=== PATIENT | female | born 1970 | race African-American/Black ===

== ENCOUNTER → 2020-07-26 | Day surgery (SDC) | payer OTHER | END | disposition home or self-care (01) | LOC: FMAMMOTONE 09:25 | PROVIDERS: ATTEND Hospitalist | PROC: 0H9T3ZX Drainage of Right Breast, Percutaneous Approach, Diagnostic (ICD-10-PCS; principal; 2020-07-26) | DX: R92.0 Mammographic microcalcification found on diagnostic imaging of breast (principal); Z53.8 Procedure and treatment not carried out for other reasons | CPT/HCPCS: 19081 ==

== ENCOUNTER 2020-10-12 08:17 | Emergency (ER) | payer OTHER ==
[2020-10-12 08:26] VITALS: BMI 19.1
[2020-10-12] MEDS ORDERED: SODIUM CHLORIDE 0.9% 500 ML INFUS.BAG IV ONE (08:49)
[2020-10-12] MEDS ORDERED: PANTOPRAZOLE SODIUM 40 MG VIAL IVPUSH ONE (08:59)
[2020-10-12] MEDS ORDERED: ONDANSETRON 4 MG/2 ML VIAL IVPUSH ONE (08:59)
[2020-10-12] MEDS ORDERED: MAG HYDROX/AL HYDROX/SIMETH 30 ML UNIT-DOSE CUP PO ONE (08:59)
[2020-10-12] MEDS ORDERED: ACETAMINOPHEN 1000 MG/100 ML VIAL (NON FORMULARY) IVPB ONE (09:03)
[2020-10-12] MEDS ORDERED: ACETAMINOPHEN INJECTION 100 ML IVPB ONE (09:08)
[2020-10-12] MEDS ORDERED: MAG HYDROX/AL HYDROX/SIMETH 30 ML UNIT-DOSE CUP ONE (09:08)
[2020-10-12] MEDS ORDERED: PANTOPRAZOLE SODIUM 40 MG VIAL ONE (09:09)
[2020-10-12] MEDS ORDERED: ONDANSETRON 4 MG/2 ML VIAL ONE (09:09)
[2020-10-12 09:59] LABS: BASO % 0.1 % (0-2.0); EOS % 1.1 % (0-4.5); HEMATOCRIT 38.2 % (32.4-45.2); HEMOGLOBIN 12.6 GM/dL (10.7-15.3); LYMPH % 24.6 % (8-40); MCH 28.2 pg (25.7-33.7); MEAN CELL VOLUME 85.6 fl (80-96); MONO % 6.5 % (3.8-10.2); NEUT % 67.7 % (42.8-82.8); PLATELET COUNT 204 10^3/uL (134-434); RBC 4.46 M/mm3 (3.60-5.2); RDW 12.8 % (11.6-15.6)
[2020-10-12 10:19] LABS: CHLORIDE 102 mmol/L (98-107); SODIUM 135 mmol/L (136-145)
[2020-10-12 10:21] LABS: ALBUMIN 3.8 g/dl (3.4-5.0); CALCIUM 9.2 mg/dL (8.5-10.1)
[2020-10-12 10:22] LABS: BLOOD UREA NITROGEN 6.1 mg/dL (7-18); CO2 29 mmol/L (21-32); GLUCOSE,RANDOM 163 mg/dL (74-106); LIPASE 26 U/L (73-393)
[2020-10-12 10:25] LABS: CREATININE 1.2 mg/dL (0.55-1.3)
[2020-10-12 10:26] LABS: BILIRUBIN,TOTAL 0.8 mg/dL (0.2-1); TOT PROT 8.2 g/dl (6.4-8.2)
[2020-10-12 10:27] LABS: ALK PHOS 67 U/L (45-117)
[2020-10-12 10:29] LABS: ANION GAP 4 MMOL/L (8-16); SGOT/AST 80 U/L (15-37)
[2020-10-12 10:50] LABS: SGPT/ALT 20 U/L (13-61)
[2020-10-12] MEDS ORDERED: morphine CARPU-JECT 4 MG/1 ML DISP.SYRIN IVPUSH ONE (10:55)
[2020-10-12] MEDS ORDERED: LORazepam 2 MG/ML SDV VIAL IVPUSH ONE (11:00)
[2020-10-12 11:21] LABS: CALCIUM 8.1 mg/dL (8.5-10.1)
[2020-10-12 11:22] LABS: BLOOD UREA NITROGEN 5.7 mg/dL (7-18)
[2020-10-12] MEDS ORDERED: LORazepam 2 MG/ML SDV VIAL ONE (11:45)
[2020-10-12 15:55] VITALS: BP 136/77; PULSE 81; TEMP 98.8
== END 2020-10-12 15:55 | disposition home or self-care (01) ==
LOC: JER 08:17
PROC: 3E0333Z Introduction of Anti-inflammatory into Peripheral Vein, Percutaneous Approach (ICD-10-PCS; principal; 2020-10-12)
PROC: 3E033NZ Introduction of Analgesics, Hypnotics, Sedatives into Peripheral Vein, Percutaneous Approach (ICD-10-PCS; 2020-10-12)
PROC: 3E033GC Introduction of Other Therapeutic Substance into Peripheral Vein, Percutaneous Approach (ICD-10-PCS; 2020-10-12)
PROC: 3E033GC Introduction of Other Therapeutic Substance into Peripheral Vein, Percutaneous Approach (ICD-10-PCS; 2020-10-12)
DX: R10.13 Epigastric pain (principal); K92.0 Hematemesis
CPT/HCPCS: 36415; 74177-TC; 80048; 80053; 82272; 83690; 84484; 85025; 93005; 93010; 99285-25; J0131; Q9967

== ENCOUNTER 2021-01-22 10:55 | Day surgery (SDC) | payer OTHER | END 2021-01-22 11:35 | disposition home or self-care (01) | LOC: FINFUSION 10:55 → FM/S 11:01 → FINFUSION 11:35 | PROVIDERS: ATTEND Nurse Practitioner Adult Health | PROC: 3E033GC Introduction of Other Therapeutic Substance into Peripheral Vein, Percutaneous Approach (ICD-10-PCS; principal; 2021-01-22) | DX: Z53.21 Procedure and treatment not carried out due to patient leaving prior to being seen by health care provider (principal); D64.9 Anemia, unspecified ==

== ENCOUNTER 2021-02-12 11:06 | Day surgery (SDC) | payer OTHER ==
[2021-02-12] MEDS ORDERED: FERRIC CARBOXYMALTOSE 750 MG in SODIUM CHLORIDE 250 ML IVPB ONE (12:00)
[2021-02-12 12:09] VITALS: PULSE 67; TEMP 97.8
[2021-02-12 12:53] VITALS: BP 110/60
== END 2021-02-12 13:03 | disposition home or self-care (01) ==
LOC: FINFUSION 11:06 → FM/S 11:07 → FINFUSION 13:03
PROVIDERS: ATTEND Nurse Practitioner Adult Health
PROC: 3E033GC Introduction of Other Therapeutic Substance into Peripheral Vein, Percutaneous Approach (ICD-10-PCS; principal; 2021-02-12)
DX: D50.9 Iron deficiency anemia, unspecified (principal)
CPT/HCPCS: 96365; J1439